=== PATIENT | male | born 1955 | race African-American/Black ===

== ENCOUNTER 2016-04-21 13:53 | Emergency (ER) | payer OTHER ==
[~2016-04-21] VITALS: Ht 172.7 cm; Wt 87.0 kg
[~2016-04-21 13:53] MED LIST: NORV5TAB PO; SERO300T PO
[2016-04-21 13:54] VITALS: BP 169/98; PULSE 82; RESP 15; TEMP 98.2; O2SAT 98
--- NOTE | 2016-04-21 16:08 | PD ---
HPI Chief Complaint: Pain: Acute or Chronic Time Seen by Provider: 16:05 Travel History International Travel<30 days: No Contact w/Intl Traveler<30days: No Traveled to known affect area: No History of Present Illness HPI Patient comes in for evaluation of left foot pain and swelling of began 2 days ago. Patient denies any known trauma. Patient states feels similar to when he was diagnosed with cellulitis previously in the same foot. Patient denies any fevers, insect bites, or scratching it. Pain is worse with walking. Patient denies anything making it better. Patient does report he is homeless and believes his tetanus shot up-to-date. 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) Social History Alcohol Use: Yes (2 16OZ BEERS W/ PINT OF EMILEE) Tobacco Use: No Substance Use: Yes (MARIJUANA) Allergies-Medications (Allergen,Severity, Reaction): Coded Allergies: Darvon (Verified Allergy, Intermediate, HIVES, 04/21/16) Reported Meds & Prescriptions Reported Meds & Active Scripts Active Ibuprofen 800 Mg Tab 800 Mg PO Q8H PRN Bactrim DS (Sulfamethoxazole-Trimethoprim) 800-160 Mg Tab 1 Tab PO BID Review of Systems Except as stated in HPI: all other systems reviewed are Neg Physical Exam Narrative GENERAL: Well-developed, overly nourished, in no acute distress, and non-ill appearing. SKIN: Warm and dry. Febrile, tender, soft tissue swelling noted over the lateral dorsal aspect of the left foot. There is no crepitus, induration, fluctuation, or deformity. HEAD: Atraumatic. Normocephalic. EYES: Pupils equal and round. EOMI. No scleral icterus. No injection or drainage. ENT: No nasal bleeding or discharge. Mucous membranes pink and moist. NECK: Trachea midline. Supple. No nuclear rigidity. CARDIOVASCULAR: Dorsal pulses 2+ intact and equal bilaterally. Capillary refill less than 2 seconds. RESPIRATORY: No accessory muscle use. No respiratory distress. MUSCULOSKELETAL: No obvious deformities. No clubbing. No cyanosis. No edema. Full range of motion. Ankle: Neagative anterior draw and Reyez test. Negative Ana's sign. No laxity noted with passive inversion and eversion of BL ankles. Negative squeeze test. Pulses equal BL distal to injury. Capillary refill less than 2 seconds distal to injury and equal BL. Sensation equal BL 1st web space. FROM of toes distal to injury and equal BL. NV intact distal to injury and equal BL. Dorsal pulses equal BL. Patient reports tenderness to palpation over dorsal aspect left foot lateral. NEUROLOGICAL: Awake and alert. No obvious cranial nerve deficits. Motor grossly within normal limits. Normal speech. PSYCHIATRIC: Appropriate mood and affect; insight and judgment normal. Data Data Last Documented VS Vital Signs Date Time Temp Pulse Resp B/P Pulse Ox O2 Delivery O2 Flow Rate FiO2 04/21/16 13:54 98.2 82 15 169/98 98 Orders Ketorolac Inj (Toradol Inj) (04/21/16 16:15) Foot, Complete (Fuj2wcy) (04/21/16 ) Ice/Cold Pack (04/21/16 16:08) [facility] Medical Decision Making Medical Screen Exam Complete: Yes Emergency Medical Condition: Yes Differential Diagnosis Fracture, cellulitis, gout, contusion, other Narrative Course The patient has cellulitis. There is no evidence of necrotizing fasciitis at this time. There is no evidence of abscess. There is no evidence of local joint space involvement. There is no evidence of deep venous thrombosis. The patient will be discharged on antibiotics. The patient was given signs and symptoms warnings for worsening infection, such as spreading of redness, increasing pain , and/or swelling, associated heat, or fever and instructed to return immediately if these signs or symptoms worsen. The patient is to follow up with physician in 2 days for recheck or return here in 2 days for recheck if unable to establish outpatient follow up. Sooner if worsens or as needed. The patient agrees with plan. Patient in no obvious distress upon re-evaluation. All pertinent Radiology result(s) discussed with patient. Patient reports improvement of pain status post Toradol shot. Patient was asked if they wanted to speak to my attending, which the patient did not wish to do at this time. Any questions/concerns in reference to patient diagnosis/condition discussed and clarified prior to patient's discharge. Reinforced sheer importance of close follow up with patient 's primary physician or primary care clinic. Instructed patient to return to ED immediately, if symptoms return/worsen. Pt showed understanding of above instructions. Further instructions and recommendations were detailed in discharge paperwork. Pt ambulated without difficulty out of ED at discharge. Diagnosis Primary Impression: Cellulitis of left foot Patient Instructions: Cellulitis (DC), General Instructions Additional Instructions: Follow-up with your primary care physician or return here in 2 days for recheck. Take all medication as prescribed. Return to the emergency department if symptoms get worse. Med/Other Pt SpecificInfo: Prescription(s) given Scripts Ibuprofen 800 Mg [id number] Mg PO Q8H PRN (Pain/Inflammation) #15 TAB Ref 0 Prov:Vesta Nolan MD 04/21/16 Sulfamethoxazole-Trimethoprim (Bactrim DS)800-160 Mg Tab1 Tab PO BID #20 TAB Ref 0 Prov:Vesta Nolan MD 04/21/16 Disposition: 01 DISCHARGE HOME Condition: Stable Guille Wang Apr 21, 2016 16:08
[2016-04-21] MEDS ORDERED: KETOROLAC TROMETHAMINE 60 MG/2 ML (IM) VIAL IM ONE (16:15)
--- NOTE | 2016-04-21 16:34 | RADRPT ---
EXAM DATE/TIME: 04/21/2016 16:19 [facility] COMPARISON: FOOT LEFT COMPLETE ([id number]), January 23, 2014, 11:56. INDICATIONS : Patient complains of left foot pain laterally. No known injury. MEDICAL HISTORY : Cellulitis. SURGICAL HISTORY : None. ENCOUNTER: Initial ACUITY: 2 days PAIN SCORE: 9/10 LOCATION: Left Foot FINDINGS: Three view examination of the left foot demonstrates no dislocation, or fracture. There is some nons pecific soft tissue swelling. The tarsal bones appear intact. The interphalangeal and metatarsophala ngeal joints are intact. The calcaneus is intact. Bony mineralization is normal. Small heel spur. M ild primary degenerative changes of the mid tarsal bones. No significant change 2013. CONCLUSION: 1. Nonspecific soft tissue swelling. 2. Mild primary degenerative changes of the mid tarsal bones. 3. Small heel spur. 4. No significant changes. Jaron Prabhakar MD on April 21, 2016 at 16:31 Board Certified Radiologist. This report was verified electronically.
[2016-04-21] MEDS ORDERED: BACT800T5 PO (16:59)
[2016-04-21] MEDS ORDERED: IBUP800T23 PO (16:59)
== END 2016-04-21 17:09 | disposition home or self-care (01) ==
LOC: NEPB 13:53
DX: L03.116 Cellulitis of left lower limb (principal); I10 Essential (primary) hypertension; F10.10 Alcohol abuse, uncomplicated
CPT/HCPCS: 73630; 96372; 99283; J1885

== ENCOUNTER 2017-06-06 17:22 | Emergency (ER) | payer OTHER ==
[~2017-06-06] VITALS: Ht 172.7 cm; Wt 100.0 kg
[~2017-06-06 17:22] MED LIST changes: +BACT800T5 PO; +IBUP1TAB7 PO; -NORV5TAB PO; -SERO300T PO
[2017-06-06 17:29] VITALS: BP 193/106; PULSE 93; RESP 18; TEMP 98.4; O2SAT 98
[2017-06-06 17:47] VITALS: BP 185/97; PULSE 87; RESP 18; TEMP 99.5; O2SAT 97
[2017-06-06] MEDS ORDERED: BACT800T5 PO (17:57)
[2017-06-06] MEDS ORDERED: CEPH-460 PO (17:57)
--- NOTE | 2017-06-06 18:01 | PD ---
HPI Chief Complaint: Skin Problem Time Seen by Provider: 17:37 Travel History International Travel<30 days: No Contact w/Intl Traveler<30days: No Traveled to known affect area: No History of Present Illness HPI This is a 62-year-old male who presents for evaluation of an area of skin redness and pain on the dorsum of the left foot. He reports that he has a chronic scar on the dorsum of the left foot from a skin tear 3 years ago. He reports that he has chronic itching to the dorsum of the left foot secondary to this. Recently he has been using triamcinolone cream to help with the itching. Reports that yesterday he scratched the area particularly forcefully. He reports that today he developed pain and redness on the dorsum of the left foot. Pain is mild, aching, worse with palpation. Denies any trauma to the left foot. He denies any pain in the left ankle, calf, thigh. Denies any fevers or chills. Denies any drainage. He reports that he has had cellulitis in the past and this feels similar. He has no other complaints at this time. [facility] Past Medical History Bipolar Disorder: Yes Diminished Hearing: No Hypertension: Yes Renal Failure: Yes (RENAL FAILURE [id number] DUE TO COCAINE AND ALCOHOL ABUSE) Tetanus Vaccination: Unknown Influenza Vaccination: No Social History Alcohol Use: Yes (2 16OZ BEERS W/ PINT OF EMILEE) Tobacco Use: No Substance Use: Yes (MARIJUANA) Allergies-Medications (Allergen,Severity, Reaction): Coded Allergies: propoxyphene (Unverified Allergy, Intermediate, HIVES, 06/06/17) Reported Meds & Prescriptions Reported Meds & Active Scripts Active Keflex (Cephalexin) 500 Mg Cap 500 Mg PO Q8H Bactrim DS (Sulfamethoxazole-Trimethoprim) 800-160 Mg Tab 1 Tab PO BID Ibuprofen 800 Mg Tab 800 Mg PO Q8H PRN Bactrim DS (Sulfamethoxazole-Trimethoprim) 800-160 Mg Tab 1 Tab PO BID Review of Systems Except as stated in HPI: all other systems reviewed are Neg Physical Exam Narrative GENERAL: Well-developed well-nourished male in no acute distress SKIN: Warm and dry. Chronic scarring of the skin on the dorsum of left foot. There is some excoriation of the skin secondary to scratching and mild erythema on the dorsum of left foot. HEAD: Atraumatic. Normocephalic. EYES: Pupils equal and round. No scleral icterus. No injection or drainage. ENT: No nasal bleeding or discharge. Mucous membranes pink and moist. NECK: Trachea midline. No JVD. CARDIOVASCULAR: Regular rate and rhythm. No murmur appreciated. RESPIRATORY: No accessory muscle use. Clear to auscultation. Breath sounds equal bilaterally. MUSCULOSKELETAL: Skin as noted above. No lower extremity edema. 2+ dorsalis pedis and posterior tibial pulses bilaterally. NEUROLOGICAL: Awake and alert. No obvious cranial nerve deficits. Motor grossly within normal limits. Normal speech. Data Data Last Documented VS Vital Signs Date Time Temp Pulse Resp B/P (MAP) Pulse Ox O2 Delivery O2 Flow Rate FiO2 06/06/17 17:47 99.5 87 18 185/97 (126) 97 Room Air MDM Medical Decision Making Medical Screen Exam Complete: Yes Emergency Medical Condition: Yes Medical Record Reviewed: Yes Differential Diagnosis Cellulitis, abrasion, erysipelas Narrative Course The patient appears to have mild cellulitis in the dorsum of the left foot secondary to scratching. He will be started on Bactrim and Keflex. Discussed signs and symptoms that would warrant returning to the emergency room. He is noted to be hypertensive in triage. He reports a history of hypertension, he reports that he is compliant with his blood pressure regimen. Recommended keeping a journal of his blood pressure readings over the next 1-2 weeks and then follow-up with primary care physician to discuss the findings. He is agreeable to this plan. He is stable for discharge. Diagnosis Primary Impression: Cellulitis of left foot Additional Instructions: Medication as prescribed. Avoid scratching. Benadryl for itching. As discussed, keep a journal of blood pressure readings and follow-up with primary care physician in 1 to weeks. Return for any acutely new or worsening symptoms. Med/Other Pt SpecificInfo: Prescription(s) given Scripts Cephalexin (Keflex) 500 Mg Cap 500 MG PO Q8H for Infection, #30 CAP 0 Refills Prov: Darell More MD 06/06/17 Sulfamethoxazole-Trimethoprim (Bactrim DS) 800-160 Mg Tab 1 TAB PO BID for Infection, #20 TAB 0 Refills Prov: Darell More MD 06/06/17 Disposition: 01 DISCHARGE HOME Condition: Stable Ayush Cleveland Jun 06, 2017 18:01
[2017-06-06 18:15] VITALS: BP 185/97
== END 2017-06-06 18:18 | disposition home or self-care (01) ==
LOC: NEPC 17:22
DX: L03.116 Cellulitis of left lower limb (principal); I10 Essential (primary) hypertension; F31.9 Bipolar disorder, unspecified; N19 Unspecified kidney failure; F12.90 Cannabis use, unspecified, uncomplicated; Z88.8 Allergy status to other drugs, medicaments and biological substances
CPT/HCPCS: 99283